=== PATIENT | male | born 1965 | race African-American/Black ===

== ENCOUNTER 2017-02-10 01:21 | Emergency (ER) | payer BC ==
[~2017-02-10 01:21] MED LIST: AMOXICILLIN875 MG PO; ANIMAL SHAPES1 EAC2; NO MEDICATIONS; VOLTAREN75 MG PO
== END 2017-02-10 01:23 | disposition home or self-care (01) ==
LOC: SED 01:21
DX: B02.9 Zoster without complications (principal); F17.200 Nicotine dependence, unspecified, uncomplicated; Z91.040 Latex allergy status
CPT/HCPCS: 99282